=== PATIENT | male | born 1950 | race Caucasian/White ===

== ENCOUNTER 2016-08-05 23:55 | Emergency (ER) | payer OTHER ==
[2016-08-06 00:20] LABS: BASO % 0.4 % (0.2-1.2); EOS # 0.3 10_X3_uL (0.0-0.5); EOS % 3.6 % (0.8-7.0); GRAN # 4.6 10_X3_uL (1.8-5.4); GRAN % 55.3 % (34.0-67.9); HEMATOCRIT 35.5 % (40-51); HEMOGLOBIN 11.6 g/dL (13.7-17.5); LYMPH # 2.7 10_X3_uL (1.3-3.6); LYMPH % 31.7 % (21.8-53.1); MEAN CORPUSCULAR HGB CONC 32.7 g/dL (32.0-36.0); MEAN CORPUSCULAR VOLUME 85.5 fL (79-92); MEAN PLATELET VOLUME 9.2 fl (7.5-11.5); MONO # 0.8 10_X3_uL (0.3-0.8); PLATELET COUNT 303 x10_3/uL (163-337); RED BLOOD COUNT 4.15 x10_6/uL (4.6-6.1); RED CELL DISTRIBUTION WIDTH 13.7 % (11.6-14.4); WHITE BLOOD COUNT 8.4 x10_3/uL (4.2-9.1)
[2016-08-06 00:30] LABS: PROTHROMBIN TIME (PATIENT) 10.2 SECONDS (9.9-11.1)
[2016-08-06 00:37] LABS: ALBUMIN 4.3 gm/dL (3.4-5.0); ALKALINE PHOSPHATASE 103 U/L (50-136); ALT/SGPT 12 U/L (7.53-40.17); AMYLASE 52 U/L (15.62-74.58); AST/SGOT 17 U/L (6.66-35.34); BILIRUBIN,TOTAL 0.26 mg/dL (0.0-1.0); BLOOD UREA NITROGEN 15 mg/dL (7-18); CALCIUM 9.3 mg/dL (8.7-10.7); CARBON DIOXIDE 28 mmol/L (21-32); CREATINE KINASE 50 U/L (35-232); CREATININE 1.1 mg/dL (0.6-1.3); GLUCOSE,RANDOM 151 mg/dL (70-99); LIPASE 51 U/L (6.75-60.75); POTASSIUM 3.4 mmol/L (3.5-5.1); SODIUM 137 mmol/L (136-145); TOTAL PROTEIN 8.2 gm/dL (6.4-8.2)
== END 2016-08-06 03:45 | disposition left against medical advice (07) ==
LOC: ER 23:55
PROVIDERS: General Practice
DX: I45.81 Long QT syndrome (principal); J84.9 Interstitial pulmonary disease, unspecified; R07.89 Other chest pain; D68.9 Coagulation defect, unspecified; I10 Essential (primary) hypertension; K21.9 Gastro-esophageal reflux disease without esophagitis; I25.10 Atherosclerotic heart disease of native coronary artery without angina pectoris; Z79.1 Long term (current) use of non-steroidal anti-inflammatories (NSAID); E11.9 Type 2 diabetes mellitus without complications; N40.0 Benign prostatic hyperplasia without lower urinary tract symptoms; R00.2 Palpitations; Z79.899 Other long term (current) drug therapy; Z79.4 Long term (current) use of insulin; Z88.8 Allergy status to other drugs, medicaments and biological substances; Z91.041 Radiographic dye allergy status
CPT/HCPCS: 71010; 93005; 96372; 99070; 99285-25; J7040; Q9967

== ENCOUNTER 2016-09-10 17:33 | Emergency (ER) | payer OTHER ==
[2016-09-10 17:56] LABS: BASO % 0.4 % (0.2-1.2); EOS # 0.2 10_X3_uL (0.0-0.5); EOS % 2.5 % (0.8-7.0); GRAN # 5.6 10_X3_uL (1.8-5.4); GRAN % 61.1 % (34.0-67.9); HEMATOCRIT 36.4 % (40-51); LYMPH # 2.7 10_X3_uL (1.3-3.6); LYMPH % 29.7 % (21.8-53.1); MEAN PLATELET VOLUME 9.3 fl (7.5-11.5); MONO # 0.6 10_X3_uL (0.3-0.8); MONO % 6.3 % (5.3-12.2); PLATELET COUNT 312 x10_3/uL (163-337); RED BLOOD COUNT 4.44 x10_6/uL (4.6-6.1); RED CELL DISTRIBUTION WIDTH 13.7 % (11.6-14.4); WHITE BLOOD COUNT 9.1 x10_3/uL (4.2-9.1)
[2016-09-10 18:15] LABS: ALBUMIN 4.2 gm/dL (3.4-5.0); ALKALINE PHOSPHATASE 97 U/L (50-136); ALT/SGPT 13 U/L (7.53-40.17); AST/SGOT 16 U/L (6.66-35.34); BILIRUBIN,TOTAL 0.32 mg/dL (0.0-1.0); BLOOD UREA NITROGEN 13 mg/dL (7-18); CALCIUM 9.2 mg/dL (8.7-10.7); CARBON DIOXIDE 26 mmol/L (21-32); CREATINE KINASE 40 U/L (35-232); CREATININE 0.9 mg/dL (0.6-1.3); GLUCOSE,RANDOM 188 mg/dL (70-99); POTASSIUM 3.6 mmol/L (3.5-5.1); SODIUM 140 mmol/L (136-145)
== END 2016-09-10 20:00 | disposition short-term general hospital (02) ==
LOC: ER 17:33
PROVIDERS: Emergency Medicine
DX: I24.9 Acute ischemic heart disease, unspecified (principal); E11.9 Type 2 diabetes mellitus without complications; I10 Essential (primary) hypertension; J44.9 Chronic obstructive pulmonary disease, unspecified; N40.0 Benign prostatic hyperplasia without lower urinary tract symptoms; Z86.14 Personal history of Methicillin resistant Staphylococcus aureus infection; Z98.890 Other specified postprocedural states; R07.2 Precordial pain; R11.2 Nausea with vomiting, unspecified; Z88.0 Allergy status to penicillin; Z88.8 Allergy status to other drugs, medicaments and biological substances; Z79.899 Other long term (current) drug therapy
CPT/HCPCS: 36415; 71010; 80053; 82550; 82553; 85025; 93005; 96374; 96375; 96376; 99070; 99285-25